=== PATIENT | male | born 1985 | race Caucasian/White ===

== ENCOUNTER 2017-11-04 17:46 | Emergency (ER) | payer OTHER ==
[~2017-11-04] VITALS: Ht 182.9 cm; Wt 79.4 kg
[2017-11-04 19:06] LABS: BASOPHILS % (AUTO) 0.1 % (0.0-2.0); HEMATOCRIT 25.7 % (36.7-47.1); HEMOGLOBIN 8.3 g/dL (12.5-16.3); LYMPHOCYTES # (AUTO) 0.4 K/uL (20.0-40.0); LYMPHOCYTES % (AUTO) 2.4 % (20.5-51.5); MEAN CORPUSCULAR HEMOGLOBIN 28.4 uug (23.8-33.4); MEAN CORPUSCULAR HGB CONC 32 g/dL (32.5-36.3); MONOCYTES # (AUTO) 0.9 K/uL (2.0-10.0); MONOCYTES % (AUTO) 4.9 % (0.0-11.0); NEUTROPHILS # (AUTO) 16.7 K/uL (1.8-8.9); NEUTROPHILS % (AUTO) 92.6 % (38.5-71.5); PLATELET COUNT (AUTO) 155 K/uL (152-348); RED BLOOD CELL COUNT(AUTO) 2.92 MIL/uL (4.06-5.63); WHITE BLOOD COUNT (AUTO) 18.1 K/uL (3.6-10.2)
[2017-11-04] MEDS ORDERED: ENOX40DI SQ (19:19)
[2017-11-04] MEDS ORDERED: HYDR-3326 PO (19:19)
[2017-11-04] MEDS ORDERED: ONDA4TAB5 PO (19:19)
[2017-11-04] MEDS ORDERED: METO-356 PO (19:19)
--- NOTE | 2017-11-04 19:26 | NUR ---
Urine Specimen collected and sent to Laboratory.
[2017-11-04 19:28] LABS: CREATININE 0.8 mg/dL (0.6-1.3); POTASSIUM 4.2 mmol/L (3.5-5.1)
[2017-11-04 19:34] LABS: BILIRUBIN,TOTAL 0.2 mg/dL (0.2-1.0); TOTAL PROTEIN, SERUM 5.7 g/dL (6.4-8.2)
[2017-11-04 19:44] LABS: *BILIRUBIN,URIN NEGATIVE (NEGATIVE); *BLOOD, URINE NEGATIVE (NEGATIVE); *CLARITY,URINE CLEAR (CLEAR); *COLOR,URINE YELLOW (YELLOW); *KETONES,URINE NEGATIVE (NEGATIVE); *PROTEIN,URINE NEGATIVE (NEGATIVE); *UROBILINOGEN,URINE 0.2 E.U./dl (NORMAL); LEUKOCYTE ESTERASE ,URINE NEGATIVE (NEGATIVE); NITRITE, URINE NEGATIVE (NEGATIVE); UGLUCOSE NEGATIVE (NEGATIVE)
[2017-11-04 19:49] LABS: BACTERIA,URINE NONE SEEN /HPF (NONE SEEN); RBC,URINE 0-3 /HPF (0-3); SQUAMOUS EPITHELIAL CELL,UR FEW /HPF (NONE SEEN); WBC,URINE 0-3 /HPF (0-3)
--- NOTE | 2017-11-04 20:41 | NUR ---
Dr. Giraldo at bedside
--- NOTE | 2017-11-04 21:00 | NUR ---
Patient discharged to home in stable conditon. Written and verbal after care instructions given. Patient verbalizes understanding of instructions. Stressed follow up with pmd or return to ER for worsening s/s.
[2017-11-04 21:01] VITALS: BP 135/77
== END 2017-11-04 21:01 | disposition home or self-care (01) ==
LOC: ER 17:47
DX: C38.0 Malignant neoplasm of heart (principal); D64.9 Anemia, unspecified; J90 Pleural effusion, not elsewhere classified; Z92.21 Personal history of antineoplastic chemotherapy; Z91.013 Allergy to seafood
CPT/HCPCS: 36415; 70030-TC; 71045; 85025; 86850; 86900; 86901; 93005; A4663